=== PATIENT | female | born 1985 | race Caucasian/White ===

== ENCOUNTER 2020-09-06 07:56 | Inpatient (IN) ==
[2020-09-06] MEDS ORDERED: Ondansetron 4 MG/2 ML VIAL IVP PRN (08:19)
[2020-09-06] MEDS ORDERED: Famotidine 20 MG/2 ML VIAL IVP PRN (08:19)
[2020-09-06] MEDS ORDERED: Naloxone 0.4 MG/ML INJ IVP PRN (08:19)
[2020-09-06] MEDS ORDERED: Lidocaine 1% 20 ML MDV ID PRN (08:19)
[2020-09-06] MEDS ORDERED: Azithromycin 500 MG in 0.9 % Sodium Chloride 250 ML IVPB ONE (08:19)
[2020-09-06] MEDS ORDERED: Metoclopramide 10 MG/2 ML VIAL IVP PRN (08:19)
[2020-09-06] MEDS ORDERED: *HR* Nalbuphine 10 MG/ML AMPUL IV PRN (08:19)
[2020-09-06] MEDS ORDERED: miSOPROStoL 25 MCG TABLET VG PRN (08:24)
[2020-09-06] MEDS ORDERED: Penicillin G Potassium 5,000,000 UNIT in 0.9 % Sodium Chloride Mini Bag 100 ML IVPB ONE (08:29)
[2020-09-06] MEDS ORDERED: Ringers Solution, Lactated 1,000 ML IVC SCH (08:30)
[2020-09-06] MEDS ORDERED: *HR* FentaNYL (PF) 100 MCG/2 ML VIAL ONE ×3 (08:50→16:39)
[2020-09-06] MEDS ORDERED: Ropivacaine/PF 0.2% 20 ML VIAL ONE (08:50)
[2020-09-06 08:53] LABS: Basophils % 0.2 %; Eosinophils # 0.1 K/mcL (0.0-0.6); Eosinophils % 0.7 %; Hematocrit 33.9 % (35.3-44.9); Hemoglobin 10.9 g/dL (11.5-15.4); Immature Granulocytes % 0.7 % (0-4); Lymphocytes # 1.6 K/mcL (0.6-4.6); Mean Corpuscular HGB Conc 32.2 g/dL (31.6-35.5); Mean Corpuscular Hemoglobin 27.7 pg (28.0-33.3); Mean Corpuscular Volume 86.3 fL (83.0-100.0); Mean Platelet Volume 10.3 fL (9.4-12.4); Monocytes # 0.7 K/mcL (0.0-1.3); Monocytes % 6.4 %; Platelet Count 201 K/mcL (140-400); Red Blood Count 3.93 M/mcL (3.82-4.97); Red Cell Distribution Width 14.3 % (11.5-14.5); White Blood Count 11.5 K/mcL (4.3-11.1)
[2020-09-06 09:02] LABS: Creatinine,Urine 87 mg/dL; Protein/Creatinine Ratio,Urine 0.24 mg/mg (0.00-0.20)
[2020-09-06 09:11] LABS: Alanine Aminotransferase 12 Units/L (7-52); Aspartate Amino Transferase 14 Units/L (13-39); BUN/Creatinine Ratio 24 (6-26); Blood Urea Nitrogen 12 mg/dL (6-20); Lactate Dehydrogenase 122 Units/L (140-271); Uric Acid 5.1 mg/dL (2.3-7.6); eGFR For African Americans > 60 (> 60); eGFR For Non-African Americans > 60 (> 60)
[2020-09-06] MEDS ORDERED: *HR* FentaNYL (PF) 100 MCG/2 ML VIAL EP ONE (10:01)
[2020-09-06] MEDS ORDERED: EPHEDrine 50 MG/ML VIAL IVP PRN (10:01)
[2020-09-06] MEDS ORDERED: Ropivacaine/PF 0.2% 20 ML VIAL EP ONE (10:01)
[2020-09-06] MEDS ORDERED: Epidural Premix (fent/bupiv) 110 ML EP SCH (10:15)
[2020-09-06 10:51] LABS: Amphetamine Screen,Urine Negative ng/mL (Cutoff=1000); Barbiturate Screen,Urine Negative ng/mL (Cutoff=200); Benzodiazepines Screen,Urine Negative ng/mL (Cutoff=200); Cannabinoid Screen,Urine Negative ng/mL (Cutoff = 50); Cocaine Screen,Urine Negative ng/mL (Cutoff= 300); Opiate Screen,Urine Negative ng/mL (Cutoff=300); Phencyclidine Screen,Urine Negative ng/mL (Cutoff=25)
[2020-09-06 10:54] LABS: Influenza A PCR Negative (Negative); Influenza B PCR Negative (Negative); Resp. Syncytial Virus PCR Negative (Negative)
[2020-09-06 11:04] LABS: SARS-CoV-2 by PCR (In House) Negative (Negative)
[2020-09-06] MEDS: Penicillin G Potassium 2,500,000 UNIT/105 ML MLS IVPB SCH ×2 (13:01→17:30)
[2020-09-06] MEDS ORDERED: Oxytocin 20 units/ LR 1000 mL 20 UNIT/1,000 ML BAG IVC SCH (13:45)
[2020-09-07] MEDS ORDERED: Acetaminophen 325 MG TABLET PO PRN (08:57)
[2020-09-07] MEDS ORDERED: Benzocaine/Menthol 56 GM AEROSOL SPRAY TP PRN (08:57)
[2020-09-07] MEDS ORDERED: Lanolin 7 G OINT...G. TP PRN (08:57)
[2020-09-07] MEDS ORDERED: Oxytocin 20 units/ LR 1000 mL 20 UNIT/1,000 ML BAG IVC SCH (08:57)
[2020-09-07] MEDS ORDERED: NON-FORMULARY MEDICATION 1 EACH EACH (Prenat 115/Iron Fum/Folic/Dss [Prenatal 19 Tablet] 1 PO SCH (09:00)
[2020-09-07] MEDS: Prenatal Vit/FA 1 EACH TABLET PO SCH (10:32)
[2020-09-07] MEDS: Aspirin Enteric Coated 81 MG Tablet PO SCH (10:32)
[2020-09-07] MEDS: Ibuprofen 600 MG TABLET PO PRN ×2 (11:36→21:01)
[2020-09-08] MEDS: Ibuprofen 600 MG TABLET PO PRN (02:33)
[2020-09-08 03:14] LABS: Basophils % 0.1 %; Eosinophils # 0.2 K/mcL (0.0-0.6); Eosinophils % 1.6 %; Hematocrit 31.8 % (35.3-44.9); Hemoglobin 10.1 g/dL (11.5-15.4); Immature Granulocytes % 0.8 % (0-4); Lymphocytes # 2.6 K/mcL (0.6-4.6); Lymphocytes % 19.3 %; Mean Corpuscular HGB Conc 31.8 g/dL (31.6-35.5); Mean Corpuscular Hemoglobin 27.7 pg (28.0-33.3); Mean Corpuscular Volume 87.4 fL (83.0-100.0); Mean Platelet Volume 10.3 fL (9.4-12.4); Monocytes % 7.2 %; Neutrophils # 9.5 K/mcL (1.6-8.9); Platelet Count 171 K/mcL (140-400); Red Blood Count 3.64 M/mcL (3.82-4.97); Red Cell Distribution Width 14.5 % (11.5-14.5); White Blood Count 13.4 K/mcL (4.3-11.1)
[2020-09-08] MEDS: Aspirin Enteric Coated 81 MG Tablet PO SCH (08:20)
[2020-09-08] MEDS: Prenatal Vit/FA 1 EACH TABLET PO SCH (08:20)
[2020-09-08 09:35] VITALS: BP 128/85
== END 2020-09-08 11:00 | disposition home or self-care (01) | DRG 807 ==
LOC: 1NENULAB 07:56 → 1NENUOBS 09-07 09:42
PROVIDERS: ADMIT Obstetrics & Gynecology; ATTEND Obstetrics & Gynecology